=== PATIENT | female | born 1955 | race Caucasian/White ===

== ENCOUNTER 2018-08-01 05:58 | Day surgery (SDC) | payer OTHER ==
[~2018-08-01] VITALS: Ht 157.5 cm; Wt 54.0 kg
[2018-08-01] MEDS ORDERED: SODIUM CHLORIDE 0.9% 1,000 ML IV ONE ×2 (06:21→07:00)
[2018-08-01] MEDS ORDERED: AMOX1TAB16 PO (07:34)
[2018-08-01] MEDS ORDERED: MOME13HF2 IH (07:34)
[2018-08-01] MEDS ORDERED: OMEP20 PO (07:34)
[2018-08-01] MEDS ORDERED: MONT10TA21 PO (07:34)
[2018-08-01] MEDS ORDERED: D-ME118S13 PO (07:34)
[2018-08-01] MEDS ORDERED: PRED10 PO (07:34)
[2018-08-01] MEDS ORDERED: MIDAZOLAM HCL 2 MG/2 ML VIAL ONE (08:16)
[2018-08-01] MEDS ORDERED: FentaNYL CITRATE-PF 100 MCG/2 ML VIAL ONE (08:17)
[2018-08-01] MEDS ORDERED: MethylPREDNISolone SOD SUCC 125 MG/2 ML VIAL IVP ONE (08:45)
[2018-08-01] MEDS ORDERED: MethylPREDNISolone SOD SUCC 125 MG/2 ML VIAL ONE (08:55)
[2018-08-01] MEDS ORDERED: LIDOCAINE 4% 50 ML SOLUTION ONE (15:05)
[2018-08-01] MEDS ORDERED: LIDOCAINE 2% 30 ML JELLY ONE (15:05)
[2018-08-01] MEDS ORDERED: BENZOCAINE 20% 50 MCG/SPRAY 57 GM ONE (15:05)
[2018-08-01] MEDS ORDERED: EPINEPHrine 1:1,000 [1 MG/ML] AMP ONE (15:05)
[2018-08-01] MEDS ORDERED: OXYGEN THERAPY IH SCH (20:00)
== END 2018-08-01 11:10 | disposition home or self-care (01) ==
LOC: SURGERY 05:58
PROVIDERS: ATTEND Internal Medicine Critical Care Medicine
DX: J38.4 Edema of larynx (principal); B37.0 Candidal stomatitis; J84.111 Idiopathic interstitial pneumonia, not otherwise specified; K21.9 Gastro-esophageal reflux disease without esophagitis; F41.8 Other specified anxiety disorders; J45.998 Other asthma; Z87.442 Personal history of urinary calculi; Z79.2 Long term (current) use of antibiotics; Z79.51 Long term (current) use of inhaled steroids; Z79.899 Other long term (current) drug therapy; Z98.890 Other specified postprocedural states
CPT/HCPCS: 31623; 31624; 71045; 87015; 87070; 87205; 87206; 87220; 88108; 88312; J0171; J2250; J2930; J3010; J7030

== ENCOUNTER 2020-08-22 07:00 | Day surgery (SDC) | payer OTHER ==
[~2020-08-22] VITALS: Ht 157.5 cm; Wt 59.5 kg
[~2020-08-22 07:00] MED LIST: AMOX1TAB16 PO; D-ME118S13 PO; MOME13HF2 IH; MONT-35 PO; OMEP20 PO; PRED10 PO
[2020-08-22] MEDS ORDERED: MIDAZOLAM HCL 2 MG/2 ML VIAL ONE (07:32)
[2020-08-22] MEDS ORDERED: FentaNYL CITRATE-PF 100 MCG/2 ML VIAL ONE (07:32)
[2020-08-22] MEDS ORDERED: SODIUM CHLORIDE 0.9% 1,000 ML IV ONE (08:15)
[2020-08-22] MEDS ORDERED: MethylPREDNISolone SOD SUCC 125 MG/2 ML VIAL IVP ONE (09:15)
[2020-08-22] MEDS ORDERED: MethylPREDNISolone SOD SUCC 125 MG/2 ML VIAL ONE (09:35)
[2020-08-22] MEDS ORDERED: BENZOCAINE 20% 50 MCG/SPRAY 57 GM ONE (17:52)
[2020-08-22] MEDS ORDERED: LIDOCAINE 4% 50 ML SOLUTION ONE (17:52)
[2020-08-22] MEDS ORDERED: ALBUTEROL SULFATE 2.5 MG/0.5 ML NEB SOLUTION NEB ONE (17:52)
[2020-08-22] MEDS ORDERED: LIDOCAINE 2% 30 ML JELLY ONE (17:52)
[2020-08-22] MEDS ORDERED: OXYGEN THERAPY IH SCH (20:00)
== END 2020-08-22 11:05 | disposition home or self-care (01) ==
LOC: SDS 07:00
PROVIDERS: ATTEND Internal Medicine Critical Care Medicine
DX: J38.4 Edema of larynx (principal); B37.0 Candidal stomatitis
CPT/HCPCS: 31623; 31624; 71045; 87015; 87070; 87101; 87205; 87206; 87220; J2250; J2930; J3010; 87077; 88108; 88312; J7613; Z7610